=== PATIENT | male | born 1955 | race Two or more races ===

== ENCOUNTER 2017-05-23 03:19 | Emergency (ER) | payer SELFPAY ==
[~2017-05-23] VITALS: Ht 165.1 cm; Wt 77.1 kg
--- NOTE | 2017-05-23 03:49 | NUR ---
PT BIB SELF FROM HOME, AMBULATORY TO ER BED 9 WITH PERSONAL CRUTCHES. PT C/O LEFT FOOT PAIN X 1 DAY PT DENIES INJURY OR TRAUMA. PT AOX3 RR EVEN AND UNLABORED. NO SOB NOTED. NAD NOTED. NO NVD AT THIS TIME. PT DENIES CP. PT PLACED ON MONITOR WAITING FOR MD THOMAS.
--- NOTE | 2017-05-23 03:50 | NUR ---
RADIOLOGY AT BEDSIDE FOR XR
[2017-05-23] MEDS ORDERED: DEXAMETHASONE SOD PHOSPHATE 10 MG/ML VIAL ONE (03:52)
[2017-05-23] MEDS ORDERED: COLCHICINE 0.6 MG TABLET ONE (03:52)
[2017-05-23] MEDS ORDERED: COLCHICINE 0.6 MG TABLET PO ONE (04:00)
[2017-05-23] MEDS ORDERED: DEXAMETHASONE SOD PHOSPHATE 4 MG/ML VIAL IM ONE (04:00)
--- NOTE | 2017-05-23 04:40 | NUR ---
DR. ARIAS AT BEDSIDE SPEAKING TO PT REGARDING RESULTS.
[2017-05-23] MEDS ORDERED: CLONIDINE HCL 0.1 MG TABLET ONE (05:11)
[2017-05-23] MEDS ORDERED: CLONIDINE HCL 0.1 MG TABLET PO ONE (05:30)
--- NOTE | 2017-05-23 06:09 | NUR ---
Patient discharged to home in stable condition. Written and verbal after care instructions given. Patient verbalizes understanding of instruction. ambulatory with a steady gait.
[2017-05-23 06:10] VITALS: BP 163/98
== END 2017-05-23 06:11 | disposition home or self-care (01) ==
LOC: ER 03:21
DX: M10.9 Gout, unspecified (principal); I10 Essential (primary) hypertension
CPT/HCPCS: 73630-TC; A4606; J1100; Z7610

== ENCOUNTER 2018-06-23 22:43 | Inpatient (IN) | payer MEDICAID ==
[~2018-06-23] VITALS: Ht 165.1 cm; Wt 72.7 kg
--- NOTE | 2018-06-23 23:02 | NUR ---
Note meredith in EDM - 06/24/18 at 0127 by LUIGI PT TO ER BED 10. AMBULATORY WITH CRUTCHES. AAOX4. NAD. C/O R LOWER LEG SWELLING X 1 WEEK, WARM AND DRY TO TOUCH. AWATING MD THOMAS.
--- NOTE | 2018-06-23 23:02 | NUR ---
PT TO ER BED 10. AMBULATORY WITH CRUTCHES. AAOX4. NAD. C/O R LOWER LEG SWELLING X 2 DAYS, WARM AND DRY TO TOUCH. AWATING MD THOMAS.
--- NOTE | 2018-06-23 23:05 | NUR ---
UNABLE TO APPRECIATE PEDAL PULSE D/T EDEMA +3
--- NOTE | 2018-06-23 23:12 | NUR ---
MD AT BEDSIDE FOR EVAL. AWAITING ORDERS
--- NOTE | 2018-06-23 23:14 | NUR ---
FACILITY MAINTENANCE WORKER INSTRUCTIONAL PARAPROFESSIONAL WAS PAGED
--- NOTE | 2018-06-23 23:16 | NUR ---
IV ACCESS OBTAINED ON L AC 18G. LABS DRAWN AND GIVEN TO TECH AT BEDSIDE.
[2018-06-23] MEDS ORDERED: VANCOMYCIN 1 GM in IV D5W 250 ML IV ONE (23:30)
[2018-06-23] MEDS ORDERED: CLINDAMYCIN 600 MG in IV D5W 100 ML IV ONE (23:30)
--- NOTE | 2018-06-23 23:30 | NUR ---
EKG BEING DONE BY TECH
[2018-06-23] MEDS ORDERED: CLINDAMYCIN 900 MG/6 ML VIAL ONE (23:32)
[2018-06-23] MEDS ORDERED: VANCOMYCIN 1 GM VIAL ONE (23:32)
[2018-06-23 23:33] LABS: BASOPHILS # (AUTO) 0.1 /CMM (0.0-0.2); EOSINOPHILS % (AUTO) 2.2 % (0.0-6.0); HEMATOCRIT 23 % (39-51); LYMPHOCYTES # (AUTO) 0.9 /CMM (0.8-4.8); LYMPHOCYTES % (AUTO) 11.8 % (20.0-44.0); MEAN CORPUSCULAR HGB CONC 30 g/dl (31.0-36.0); MEAN CORPUSCULAR VOLUME 67 fL (80-96); MONOCYTES # (AUTO) 0.8 /CMM (0.1-1.30); MONOCYTES % (AUTO) 10.9 % (2.0-12.0); NEUTROPHILS # (AUTO) 5.7 /CMM (1.8-8.9); NEUTROPHILS % (AUTO) 74.1 % (43.0-81.0); WHITE BLOOD COUNT (AUTO) 7.8 K/uL (4.3-11.0)
[2018-06-23 23:36] LABS: CREATININE 1.1 mg/dL (0.6-1.3); POTASSIUM 3.9 mmol/L (3.5-5.1)
[2018-06-23 23:42] LABS: PLATELET COUNT (AUTO) 1069 /CMM (150-450)
--- NOTE | 2018-06-23 23:51 | NUR ---
US TECH AT BEDSIDE.
[2018-06-24] VITALS (7 sets, daily range): BP systolic 128–160; BP diastolic 60–88
[2018-06-24 00:28] LABS: LYMPHOCYTES % (MANUAL) 8 % (16-48); MONOCYTES % (MANUAL) 6 % (0-11.0)
[2018-06-24 00:29] LABS: NEUTROPHILS % (MANUAL) 86 (42-76)
[2018-06-24] MEDS ORDERED: PANTOPRAZOLE 40 MG VIAL IV ONE (00:30)
--- NOTE | 2018-06-24 00:42 | NUR ---
CALLED [employer]. LOCAL SUPERINTENDENT WAS PAGED.
[2018-06-24 01:20] LABS: D-DIMER 14.48 mg/L(FEU (0.17-0.50)
--- NOTE | 2018-06-24 01:20 | NUR ---
JOAO SHEIKH CALL THE NURSING RAW MATERIAL HANDLER FOR A MS BED Addendum: 06/24/18 at 0128 by CHELSEA NUZHAT SHEIKH IS CALLING THE NURSING RAW MATERIAL HANDLER FOR A MS BED
[2018-06-24] MEDS ORDERED: MAGNESIUM HYDROXIDE 30 ML UDC PO PRN (01:30)
[2018-06-24] MEDS ORDERED: MORPHINE SULFATE INJ 2 MG/ML DISP.SYRIN IV PRN (01:30)
[2018-06-24] MEDS ORDERED: Z GUARD REMEDY 2 OZ OINT TP PRN (01:30)
[2018-06-24] MEDS ORDERED: ONDANSETRON HCL/PF 4 MG/2 ML VIAL IVP PRN (01:30)
[2018-06-24] MEDS ORDERED: ZOLPIDEM TARTRATE 5 MG TABLET PO PRN (01:30)
[2018-06-24] MEDS ORDERED: HYDROCODONE/APAP 5/325MG 1 EACH TABLET PO PRN (01:30)
--- NOTE | 2018-06-24 01:40 | NUR ---
REPORT GIVEN TO JOAO SEQUEIRA FOR WENDY, PT WILL BE TRANSPORTED VIA ACLS PROTOCOL TO 320-1
[2018-06-24] MEDS: IV NS 0.9% 1,000 ML IV PRN (01:58)
[2018-06-24 02:15] LABS: IRON, SERUM 8 ug/dl (50-175); TOTAL IRON BINDING CAPACITY 271 ug/dl (250-450)
--- NOTE | 2018-06-24 02:15 | NUR ---
MS/RN RECEIVE PATIENT FROM E.. VIA [facility], PATIENT IS AWAKE, ALERT, ORIENTED, COMFORTABLE, NO C/O PAIN AT THIS TIME, NO DISTRESS NOTE, ADMISSION DONE PER PROTOCOL, PER PATIENT HE HAS NO SKIN PROBLEM EXCEPT FOR THE SWELLING IN HIS RT. LEG, TAUGHT THE USE OF CALL LIGHT, VERBALIZED UNDERSTANDING, AND PLACED IT AT BEDSIDE WITHIN REACH. PLAN OF CARE DISCUSSED, VERBALIZED UNDERSTANDING AND AGREEMENT, WILL MONITOR.
--- NOTE | 2018-06-24 04:01 | NUR ---
MS/RN PATIENT IS SLEEPING AT THIS TIME, AROUSABLE, APPEAR COMFORTABLE, NO SIGNS OF DISTRESS NOTED, CALL LIGHT IN REACH. WILL CONTINUE TO MONITOR.
--- NOTE | 2018-06-24 06:10 | NUR ---
MS/RN PATIENT IS STILL SLEEPING AT THIS TIME, AROUSABLE, APPEAR COMFORTABLE, NO SIGNS OF DISTRESS NOTED, CALL LIGHT IN REACH. ALL NEEDS ATTENDED AT THIS TIME, WILL CONTINUE TO MONITOR.
--- NOTE | 2018-06-24 06:31 | NUR ---
MS/RN PATIENT IS AWAKE, ALERT, COMFORTABLE, NO C/O PAIN, NO DISTRESS NOTED. CALL LIGHT IN REACH. WILL CONTINUE TO MONITOR.
--- NOTE | 2018-06-24 07:30 | NUR ---
MS RN RECEIVED ON BED, AWAKE,ALERT,ORIENTED X4,NOT IN ANY FORM OF DISTRESS, RESPIRATIONS EVEN AND UNLABORED,NO SOB NOTED, LUNGS ARE CLEAR.ABDOMEN SOFT,POSITIVE BOWEL SOUNDS,DENIES PAIN AT THIS TIME,WILL MONITOR PATIENT'S CONDITION.
--- NOTE | 2018-06-24 07:45 | NUR ---
MS RN RECEIVED ON BED, AWAKE,ALERT,ORIENTED X4,NOT IN ANY FORM OF DISTRESS, RESPIRATIONS EVEN AND UNLABORED,NO SOB NOTED. DENIES PAIN AT THIS TIME, WILL MONITOR PATIENT.
--- NOTE | 2018-06-24 08:08 | NUR ---
MS RN RECEIVE D A CRITICAL LEVEL FOR HGB AND PLATELETS, DOCTOR ANAIS SANCHEZ.
[2018-06-24] MEDS ORDERED: FEE PK DOSING 1 MIN EA MC ONE (08:10)
--- NOTE | 2018-06-24 08:10 | NUR ---
MS RN JUST ATE BREAKFAST, PATIENT WANTS TO GO AMA, EXPLAINED RISK AND BENEFITS, STILL WANT TO GO.
[2018-06-24 08:15] LABS: CALCIUM, SERUM 8.4 mg/dL (8.5-10.1); MAGNESIUM 2.3 mg/dL (1.8-2.4); PHOSPHORUS 4.1 mg/dL (2.5-4.9); POTASSIUM 3.7 mmol/L (3.5-5.1)
--- NOTE | 2018-06-24 08:15 | NUR ---
MS RN PATIENT WENT AMA, PAPER SIGNED,CN NOTIFIED, REMOVED IV KISHAN. Addendum: 06/24/18 at 0837 by MOLLY MONGE RN DISREGARD NOTES AT [id number] AND 0815.
[2018-06-24 08:37] LABS: BASOPHILS # (AUTO) 0.1 /CMM (0.0-0.2); BASOPHILS % (AUTO) 1.3 % (0.0-2.0); EOSINOPHILS % (AUTO) 4.8 % (0.0-6.0); HEMATOCRIT 21 % (39-51); LYMPHOCYTES # (AUTO) 1.3 /CMM (0.8-4.8); LYMPHOCYTES % (AUTO) 18.3 % (20.0-44.0); MEAN CORPUSCULAR HGB CONC 31 g/dl (31.0-36.0); MEAN CORPUSCULAR VOLUME 66 fL (80-96); MONOCYTES # (AUTO) 0.8 /CMM (0.1-1.30); MONOCYTES % (AUTO) 11.4 % (2.0-12.0); NEUTROPHILS # (AUTO) 4.4 /CMM (1.8-8.9); NEUTROPHILS % (AUTO) 64.2 % (43.0-81.0); RED BLOOD CELL COUNT(AUTO) 3.22 MIL/uL (4.5-6.0); WHITE BLOOD COUNT (AUTO) 6.9 K/uL (4.3-11.0)
[2018-06-24 08:39] LABS: HEMOGLOBIN 6.6 g/dL (13.5-17.5); PLATELET COUNT (AUTO) 973 /CMM (150-450)
[2018-06-24] MEDS: ENOXAPARIN SODIUM 40 MG/0.4 ML DISP.SYRIN SQ SCH (09:00)
--- NOTE | 2018-06-24 09:00 | NUR ---
MS JOAO HILLIARD HELD PER DOCTOR MANZO W/ ON UNIT PRBC TO BE GIVEN FOR LOW HGB.
--- NOTE | 2018-06-24 13:00 | NUR ---
MS RN NEW IV SITE INSERTED AT LEFT HAND FOR ANOTHER ATB IV TO USE, G22 W/ GOOD VENOUS OUTPUT.
[2018-06-24] MEDS ORDERED: IBUP-1957 PO (13:33)
[2018-06-24] MEDS: PIPERACILLIN /TAZOBACTAM 3.375 G in IV D5W 50 ML IV SCH ×2 (14:09→17:54)
[2018-06-24] MEDS: VANCOMYCIN 1 GM in IV D5W 250 ML IV SCH (14:09)
[2018-06-24 14:21] LABS: LYMPHOCYTES % (MANUAL) 21 % (16-48); MONOCYTES % (MANUAL) 6 % (0-11.0); NEUTROPHILS % (MANUAL) 73 (42-76)
[2018-06-24] MEDS ORDERED: diphenhydrAMINE HCL 25 MG CAPSULE PO PRN (14:30)
--- NOTE | 2018-06-24 14:33 | NUR ---
MS RN PATIENT REQUESTED TO REMOVED IV SITE AT LEFT AC, CAUSING HIM PAIN.
[2018-06-24] MEDS: SOD FERRIC GLUC 125 MG in IV NS 0.9% 100 ML IV SCH (15:10)
[2018-06-24] MEDS: MORPHINE SULFATE INJ 2 MG/ML DISP.SYRIN IV PRN ×2 (15:11→22:06)
--- NOTE | 2018-06-24 17:40 | NUR ---
MS RN ON BED,NO DISTRESS NOTED.
--- NOTE | 2018-06-24 19:12 | NUR ---
MS RN STARTED BT, NO REACTION NOTED, ENDORSED TO HIGH SCHOOL FOREIGN LANGUAGE TEACHER RN FOR MONITORING.
--- NOTE | 2018-06-24 19:30 | NUR ---
MS/RN RECEIVE PATIENT AWAKE, ALERT, ORIENTED, COMFORTABLE, NO C/O PAIN, NO DISTRESS NOTE, BLOOD TRANSFUSION IN PROGRESS, WILL MONITOR PER BLOOD TRANSFUSION PROTOCOL.
[2018-06-24] MEDS: ACETAMINOPHEN 325 MG TABLET PO PRN (20:31)
--- NOTE | 2018-06-24 21:29 | NUR ---
MS/RN TEMP 100.8, BP128/66, HR 95, RR 18, O2 SAT 98% ON ROOM AIR, NO RASHES, NO HIVES NOTED, PATIENT NO C/O ANY PAIN, NO SOB, NOTIFIED CHARGE NURSE, CALLED [facility], SPOKE TO SESAR PALACIO NP, AT 2019 WITH ORDER TO STOP THE BLOOD TRANSFUSION, GIVE TYLENOL AND CHECK CBC IN A.M. TYLENOL 650 MG PO WAS GIVEN TO THE PATIENT ORDERED, CALLED BLOOD BANK, SPOKE TO RITIKA, NOTIFIED ABOUT THE TEMP OF 100.8 DURING BLOOD TRANSFUSION, PER RITIKA HE DOES NOT THINK IT IS A BLOOD TRANSFUSION REACTION, AND THAT, JUST MONITOR THE PATIENT FOR ANY OTHER REACTION. CHARGE NURSE MADE AWARE OF ALL THE WITH JUNIOR COPYWRITER AND BLOOD BANK, WILL CONTINUE TO MONITOR THE PATIENT.
--- NOTE | 2018-06-24 23:56 | NUR ---
MS/RN PATIENT IS SLEEPING AT THIS TIME, APPEAR COMFORTABLE, NO SIGNS OF DISTRESS NOTED, BREATHING EVEN AND UNLABORED, CALL LIGHTIN WITHIN REACH. WILL CONTINUE TO MONITOR.
[2018-06-25] VITALS (8 sets, daily range): BP systolic 116–139; BP diastolic 63–79
[2018-06-25] MEDS: PIPERACILLIN /TAZOBACTAM 3.375 G in IV D5W 50 ML IV SCH ×4 (01:13→18:27)
[2018-06-25] MEDS: VANCOMYCIN 1 GM in IV D5W 250 ML IV SCH ×2 (01:52→14:13)
[2018-06-25] MEDS: MORPHINE SULFATE INJ 2 MG/ML DISP.SYRIN IV PRN ×3 (04:43→19:59)
[2018-06-25 05:46] LABS: OCCULT BLOOD STOOL NEGATIVE (NEGATIVE)
--- NOTE | 2018-06-25 06:14 | NUR ---
MS/RN PATIENT IS SLEEPING AT THIS TIME, APPEAR COMFORTABLE, NO SIGNS OF DISTRESS NOTED, CALL LIGHT IN REACH. ALL NEEDS ATTENDED AT THIS TIME, WILL CONTINUE TO MONITOR.
[2018-06-25 06:57] LABS: CALCIUM, SERUM 7.9 mg/dL (8.5-10.1); CREATININE 1.1 mg/dL (0.6-1.3); POTASSIUM 3.5 mmol/L (3.5-5.1)
[2018-06-25] MEDS: HYDROCODONE/APAP 5/325MG 1 EACH TABLET PO PRN (07:02)
--- NOTE | 2018-06-25 07:30 | NUR ---
MS RN RECEIVED ON BED, AWAKE,ALERT, ORIENTED X4,NOT IN ANY FORM OF DISTRESS, RESPIRATIONS EVEN AND UNLABORED,NO SOB NOTED. WILL MONITOR PATIENT.
[2018-06-25 08:18] LABS: BASOPHILS # (AUTO) 0.1 /CMM (0.0-0.2); BASOPHILS % (AUTO) 1.1 % (0.0-2.0); EOSINOPHILS % (AUTO) 3.6 % (0.0-6.0); HEMATOCRIT 21 % (39-51); LYMPHOCYTES # (AUTO) 0.9 /CMM (0.8-4.8); LYMPHOCYTES % (AUTO) 11.7 % (20.0-44.0); MEAN CORPUSCULAR HGB CONC 31 g/dl (31.0-36.0); MEAN CORPUSCULAR VOLUME 68 fL (80-96); MONOCYTES # (AUTO) 0.8 /CMM (0.1-1.30); MONOCYTES % (AUTO) 9.6 % (2.0-12.0); RED BLOOD CELL COUNT(AUTO) 3.11 MIL/uL (4.5-6.0); WHITE BLOOD COUNT (AUTO) 8.1 K/uL (4.3-11.0)
[2018-06-25 08:21] LABS: HEMOGLOBIN 6.5 g/dL (13.5-17.5); PLATELET COUNT (AUTO) 964 /CMM (150-450)
[2018-06-25 08:56] LABS: LYMPHOCYTES % (MANUAL) 12 % (16-48); MONOCYTES % (MANUAL) 6 % (0-11.0); NEUTROPHILS % (MANUAL) 82 (42-76)
[2018-06-25] MEDS: ENOXAPARIN SODIUM 40 MG/0.4 ML DISP.SYRIN SQ SCH (08:56)
[2018-06-25] MEDS ORDERED: FUROSEMIDE 20 MG/2 ML VIAL IV ONE (09:00)
[2018-06-25] MEDS: POTASSIUM CHLORIDE 20 MEQ TAB.PRT.SR PO SCH ×3 (09:18→11:20)
--- NOTE | 2018-06-25 09:30 | NUR ---
Marilee RN BREAKFAST SERVED, LOVENOX HELD PER DR. GUERRERO. LOW HGB AT 6.5, WILL HAVE A BLOOD TRANSFUSION TODAY.
[2018-06-25] MEDS: ACETAMINOPHEN 325 MG TABLET PO PRN ×4 (10:17→19:58)
--- NOTE | 2018-06-25 11:40 | NUR ---
MS RN STARTED BLOOD TRANSFUSION, NO REACTION NOTED, NO FEVER AT THIS TIME.
--- NOTE | 2018-06-25 14:18 | NUR ---
MS RN FINISHED BLOOD TRANSFUSION W/O ANY ADVERSE REACTION,V/S WNL, NO FEVER NOTED.TOLERATED WELL.
[2018-06-25] MEDS: SOD FERRIC GLUC 125 MG in IV NS 0.9% 100 ML IV SCH (15:25)
--- NOTE | 2018-06-25 16:58 | NUR ---
MS RN ON BED,NO DISTRESS NOTED.
[2018-06-25] MEDS: LACTOBACILLUS RHAMNOSUS GG 1 EACH CAP.SPRINK PO SCH (17:33)
[2018-06-25] MEDS ORDERED: PANTOPRAZOLE 40 MG VIAL IV SCH (18:30)
--- NOTE | 2018-06-25 19:00 | NUR ---
RN MS NOTES RECEIVED PATIENT IN BED AWAKE ALERT AND ORIENTED X4, RESPIRATIONS EVEN AND UNLABORED WITH EQUAL RISE AND FALL OF CHEST, NOTED WITH RLE SWELLING, AMBULATORY WITH CRUTCHES, IV SITE TO RIGHT UPPER ARM #24. REFUSED IVF AT THIS TIME, ORIENTED TO STAFF AND CALL LIGHT AND KEPT WITHIN REACH, SAFETY PRECAUTIONS IN PLACE, CRUTCHES WITHIN REACH. FLUIDS OFFERED, PATIENT MADE AWARE OF NPO STATUS AT MIDNIGHT. ALL NEEDS ATTENDED WILL CONTINUE TO MONITOR.
--- NOTE | 2018-06-25 19:59 | NUR ---
RN MS NOTES NOTED PATIENT WITH AGITATION AND RESTLESSNESS, COMPLAINING OF PAIN TO RIGHT LOWER EXTREMITY 10/10 OFFERED PAIN MEDICATION REQUESTED FOR MORPHINE. VS WNL 132/72,18,104,97% MORPHINE PRN GIVEN. PATIENT REFUSING IVF.WILL CONTINUE TO MONITOR FOR EFFECTIVENESS. PATIENT ALSO NOTED WITH ELEVATED TEMP OF 100.1 TYLENOL OFFERED AND TAKEN COOLING MEASURES OFFERED AND PROVIDED, NO CHILLS OR SWEATS PRESENT. WILL CONTINUE TO MONITOR
--- NOTE | 2018-06-25 20:56 | NUR ---
RN MS NOTES CHANGE OF ASSIGNMENT , REPORT GIVEN TO JOAO MEI FOR CONTINUITY OF CARE, PATIENT REMAINS COMFORTABLE AND SAFE AT THIS TIME.
--- NOTE | 2018-06-25 21:00 | NUR ---
RN NOTES RECEIVED PT,. FROM ANOTHER PT. PT. IS AWAKE, A/OX4, DENIES PAIN, NO SOB, CALL LIGHT WITHIN REACH, CONTINUE TO MONITOR
--- NOTE | 2018-06-25 21:30 | NUR ---
RN NOTES ICU NURSE CAME AND INSERTED A NEW LINE ON THE RIGHT FOREARM
[2018-06-26] MEDS: PIPERACILLIN /TAZOBACTAM 3.375 G in IV D5W 50 ML IV SCH ×4 (00:33→19:04)
[2018-06-26] MEDS: VANCOMYCIN 1 GM in IV D5W 250 ML IV SCH (01:33)
[2018-06-26] MEDS: MORPHINE SULFATE INJ 2 MG/ML DISP.SYRIN IV PRN ×2 (01:56→07:04)
--- NOTE | 2018-06-26 02:00 | NUR ---
RN NOTES COMPLAINED OF ABDOMINAL PAIN- MORPHINE 2 MG IV GIVEN ORDERED, V/S STABLE
[2018-06-26 06:51] VITALS: BP 151/85
--- NOTE | 2018-06-26 06:53 | NUR ---
RN NOTES AWAKE, DENIES PAIN, NO SOB, MORNING CARE RENDERED, PT. NEEDS ATTENDED
--- NOTE | 2018-06-26 07:07 | NUR ---
RN NOTES COMPLAINED OF RIGHT LOWER EXTREMITY PAIN- MORPHINE 2 MG IV GIVEN ORDERED, V/S STABLE
[2018-06-26 07:31] LABS: BASOPHILS # (AUTO) 0.1 /CMM (0.0-0.2); BASOPHILS % (AUTO) 1.2 % (0.0-2.0); EOSINOPHILS % (AUTO) 3.5 % (0.0-6.0); HEMATOCRIT 27 % (39-51); HEMOGLOBIN 8.4 g/dL (13.5-17.5); LYMPHOCYTES # (AUTO) 1.4 /CMM (0.8-4.8); LYMPHOCYTES % (AUTO) 14.5 % (20.0-44.0); MEAN CORPUSCULAR HGB CONC 31 g/dl (31.0-36.0); MEAN CORPUSCULAR VOLUME 69 fL (80-96); MONOCYTES # (AUTO) 0.9 /CMM (0.1-1.30); MONOCYTES % (AUTO) 9.4 % (2.0-12.0); NEUTROPHILS # (AUTO) 6.8 /CMM (1.8-8.9); NEUTROPHILS % (AUTO) 71.4 % (43.0-81.0); RED BLOOD CELL COUNT(AUTO) 3.92 MIL/uL (4.5-6.0); WHITE BLOOD COUNT (AUTO) 9.5 K/uL (4.3-11.0)
[2018-06-26 07:38] LABS: PLATELET COUNT (AUTO) 1148 /CMM (150-450)
[2018-06-26 07:44] LABS: ALANINE AMINOTRANSFERASE 17 U/L (12-78); ALKALINE PHOSPHATASE 149 U/L (46-116); ASPARTATE AMINOTRANSFERASE 18 U/L (15-37); BILIRUBIN,TOTAL 0.4 mg/dL (0.2-1.0); CALCIUM, SERUM 8.7 mg/dL (8.5-10.1); CARBON DIOXIDE 28 mmol/L (21-32); CHLORIDE 101 mmol/L (98-107); CREATININE 1.1 mg/dL (0.6-1.3); GLUCOSE 103 mg/dL (74-106); MAGNESIUM 2.3 mg/dL (1.8-2.4); PHOSPHORUS 3.8 mg/dL (2.5-4.9); POTASSIUM 4.2 mmol/L (3.5-5.1); SODIUM SERUM 137 mmol/L (136-145); UREA NITROGEN, BLOOD 14 mg/dL (7-18)
--- NOTE | 2018-06-26 07:57 | NUR ---
M/S RN NOTES PATIENT AWAKE, ALERT AND ORIENTED X4, NO ACUTE DISTRESS NOTED, NO SOB. IV ON LFA #20G, INTACT AND PATENT. PATIENT REFUSED IVF AT THIS TIME. PATIENT ON NPO STATUS. BED ON LOW AND LOCKED POSITION. CALL LIGHT WITHIN REACH. WILL CONTINUE TO MONITOR.
[2018-06-26 08:00] VITALS: BP 133/75
[2018-06-26] MEDS ORDERED: ANESTHESIA TRAY IN PYXIS 1 EA TRAY MC ONE (08:24)
[2018-06-26 08:26] LABS: EOSINOPHILS % (MANUAL) 3 % (0-4); LYMPHOCYTES % (MANUAL) 12 % (16-48); MONOCYTES % (MANUAL) 14 % (0-11.0); NEUTROPHILS % (MANUAL) 71 (42-76)
--- NOTE | 2018-06-26 09:00 | NUR ---
ms moo came back from egd w/ orders made and carried out.
[2018-06-26] MEDS: LACTOBACILLUS RHAMNOSUS GG 1 EACH CAP.SPRINK PO SCH ×2 (09:19→17:38)
[2018-06-26] MEDS: ENOXAPARIN SODIUM 40 MG/0.4 ML DISP.SYRIN SQ SCH (09:23)
--- NOTE | 2018-06-26 11:00 | NUR ---
ms rn was seen by dr. alena david/ orders made and carried out.
[2018-06-26] MEDS: SUCRALFATE 1 G/10 ML UDC PO SCH ×2 (12:09→17:39)
[2018-06-26] MEDS ORDERED: IBUPROFEN 400 MG TABLET ONE (13:33)
[2018-06-26] MEDS: VANCOMYCIN 0.75 GM in IV D5W 250 ML IV SCH (13:42)
[2018-06-26] MEDS: SOD FERRIC GLUC 125 MG in IV NS 0.9% 100 ML IV SCH (14:46)
[2018-06-26] MEDS: IV NS 0.9% 1,000 ML IV PRN (15:24)
[2018-06-26] MEDS: HYDROCODONE/APAP 5/325MG 1 EACH TABLET PO PRN (15:48)
[2018-06-26 16:00] VITALS: BP 132/69
[2018-06-26] MEDS: PANTOPRAZOLE 40 MG VIAL IV SCH (17:38)
--- NOTE | 2018-06-26 19:21 | NUR ---
ms rn on bed, no distress noted, endorsed to senior analysis specialist for continuity of care.
--- NOTE | 2018-06-26 19:30 | NUR ---
RN NOTES RECEIVED PT. AWAKE ON BED, A/OX4, AMBULATE WITH CRUTCHES, DENIES PAIN, NO SOB, CALL LIGHT WITHIN REACH, SIDERAILSUPX2, WILL CONTINUE TO MONITOR
[2018-06-26 20:00] VITALS: BP_SYST 156; BP_SYST 163; BP_DIAS 79
[2018-06-27] MEDS: SUCRALFATE 1 G/10 ML UDC PO SCH ×3 (00:32→12:15)
[2018-06-27] MEDS: PIPERACILLIN /TAZOBACTAM 3.375 G in IV D5W 50 ML IV SCH ×3 (00:33→13:14)
[2018-06-27] MEDS: HYDROCODONE/APAP 5/325MG 1 EACH TABLET PO PRN (00:45)
--- NOTE | 2018-06-27 00:45 | NUR ---
RN NOTES COMPLAINED OF RIGHT LEG PAIN- NORCO 5/325MG PO GIVEN ORDERED, V/S STABLE
[2018-06-27] MEDS: VANCOMYCIN 0.75 GM in IV D5W 250 ML IV SCH (01:24)
--- NOTE | 2018-06-27 06:45 | NUR ---
RN NOTES AWAKE, DENIES PAIN, NO SOB, MORNING CARE RENDERED, CALL [facility] WITHIN REACH, SIDERAILSUPX2, PT. NEEDS ATTENDED
[2018-06-27 07:28] LABS: BASOPHILS # (AUTO) 0.1 /CMM (0.0-0.2); BASOPHILS % (AUTO) 1.2 % (0.0-2.0); EOSINOPHILS % (AUTO) 3.4 % (0.0-6.0); HEMATOCRIT 25 % (39-51); HEMOGLOBIN 7.7 g/dL (13.5-17.5); LYMPHOCYTES # (AUTO) 1.4 /CMM (0.8-4.8); LYMPHOCYTES % (AUTO) 17.8 % (20.0-44.0); MEAN CORPUSCULAR HGB CONC 31 g/dl (31.0-36.0); MEAN CORPUSCULAR VOLUME 69 fL (80-96); MONOCYTES # (AUTO) 0.9 /CMM (0.1-1.30); MONOCYTES % (AUTO) 10.8 % (2.0-12.0); NEUTROPHILS # (AUTO) 5.4 /CMM (1.8-8.9); NEUTROPHILS % (AUTO) 66.8 % (43.0-81.0); RED BLOOD CELL COUNT(AUTO) 3.61 MIL/uL (4.5-6.0); WHITE BLOOD COUNT (AUTO) 8.1 K/uL (4.3-11.0)
[2018-06-27 07:36] LABS: PLATELET COUNT (AUTO) 1044 /CMM (150-450)
[2018-06-27 07:43] LABS: CALCIUM, SERUM 8.4 mg/dL (8.5-10.1); CREATININE 1.1 mg/dL (0.6-1.3); MAGNESIUM 2.5 mg/dL (1.8-2.4); POTASSIUM 4.1 mmol/L (3.5-5.1)
[2018-06-27 08:10] VITALS: BP 138/90
[2018-06-27 08:44] LABS: LYMPHOCYTES % (MANUAL) 7 % (16-48); MONOCYTES % (MANUAL) 6 % (0-11.0); NEUTROPHILS % (MANUAL) 87 (42-76)
--- NOTE | 2018-06-27 09:08 | NUR ---
RN MS NOTES OPENING Patient received on room air, no sob noted. Patient able to go to the restroom using his crutches, IVF at 75 ml/hr, flowing freely with no obstruction. Patient denies pain. Dr. Sapp ordered the enoxaparin to be d/c'd.
[2018-06-27] MEDS: LACTOBACILLUS RHAMNOSUS GG 1 EACH CAP.SPRINK PO SCH (09:11)
[2018-06-27] MEDS: PANTOPRAZOLE 40 MG VIAL IV SCH (09:11)
[2018-06-27] MEDS ORDERED: HYDR-4384 PO (09:56)
[2018-06-27] MEDS ORDERED: CLIN300C11 PO (09:56)
[2018-06-27] MEDS ORDERED: PANT40TA2 PO (09:56)
[2018-06-27] MEDS ORDERED: SUCR1ORA6 PO (09:56)
[2018-06-27] MEDS ORDERED: FERR325T23 PO (09:56)
[2018-06-27] MEDS ORDERED: NA PHOS,M-B/NA PHOS,DI-BA 1 EA ENEMA RC PRN (13:00)
[2018-06-27] MEDS ORDERED: MAGNESIUM CITRATE 296 ML BOTTLE PO ONE (13:00)
[2018-06-27] MEDS ORDERED: PEG 3350/NA SULF,BICARB,CL/KCL 4,000 ML BOTTLE PO ONE (13:00)
[2018-06-27] MEDS: SOD FERRIC GLUC 125 MG in IV NS 0.9% 100 ML IV SCH (14:18)
--- NOTE | 2018-06-27 16:02 | NUR ---
RN MS D/C NOTES Patient is discharged around 1530. Patient on room air, no sob noted. Patient denies pain at this time. Patient's vital sign stable. Patient has all his belongings with him, clothes, money and cell phone and cell phone food service driver. Patient was given the d/c paperworks, signed and has no questions or questions about his discharge instructions. Patient was taken home by a private car driven by his friend. Photo's were taken of his Right Lower Leg.
== END 2018-06-27 15:35 | disposition home or self-care (01) | DRG 383 ==
LOC: ER 22:49 → MED 06-24 01:24
PROVIDERS: ADMIT Nurse Practitioner Acute Care; ATTEND Nurse Practitioner Acute Care
DX: L03.115 Cellulitis of right lower limb (principal); D69.6 Thrombocytopenia, unspecified; K20.9 Esophagitis, unspecified; D50.9 Iron deficiency anemia, unspecified; E11.9 Type 2 diabetes mellitus without complications; F14.11 Cocaine abuse, in remission; K27.3 Acute peptic ulcer, site unspecified, without hemorrhage or perforation; M10.9 Gout, unspecified; Z87.891 Personal history of nicotine dependence; K29.80 Duodenitis without bleeding; K29.70 Gastritis, unspecified, without bleeding; K44.9 Diaphragmatic hernia without obstruction or gangrene; Z82.49 Family history of ischemic heart disease and other diseases of the circulatory system; Z96.641 Presence of right artificial hip joint; Z87.11 Personal history of peptic ulcer disease; Z83.3 Family history of diabetes mellitus; M71.20 Synovial cyst of popliteal space [Baker], unspecified knee
CPT/HCPCS: 36415; 71045-TC; 73564-TC; 73590-TC; 80048-TC; 80053-TC; 80061-TC; 80202-TC; 82272-TC; 82378; 83540-TC; 83735-TC; 83880; 84100-TC; 84484-TC; 85025-TC; 85378-TC; 85652-TC; 85730-TC; 86140-TC; 86850-TC; 86900-TC; 86921-TC; 87040-TC; 87081-TC; 88305-TC; 88313-TC; 93307-TC; 93971-TC; C9113; G0378; J1650; J1940; J2270; J2543; J2916; J3370; J3490; J7030; J7050; J7060; P9016-BL

== ENCOUNTER 2021-11-03 09:43 | Inpatient (IN) | payer MEDICAID ==
[~2021-11-03] VITALS: Ht 160 cm; Wt 68.0 kg
[~2021-11-03 09:43] MED LIST: CLIN300C12 PO; FERR325T23 PO; HYDR-4384 PO; IBUP-1957 PO; PANT40TA2 PO; SUCR1ORA6 PO
--- NOTE | 2021-11-03 09:48 | NUR ---
[id number] FROM "HOME" FOR ALTERED MENTAL STATUS, NONVERBAL, PER EMS LKW 9PM. ATTACHED TO MONITOR, DR VELOZ AT BEDSIDE. BLOOD GLUCOSE 105 UPON ARRIVAL.AWIAITING ORDERS.
--- NOTE | 2021-11-03 09:56 | NUR ---
CODE STROKE. TELEMED ACTIVATED.
--- NOTE | 2021-11-03 09:58 | NUR ---
PT TAKEN TO CT.
[2021-11-03] MEDS ORDERED: ASPIRIN 300 MG/SUPP.RECT RC ONE ×2 (10:00→10:30)
[2021-11-03] MEDS ORDERED: IOHEXOL-350 100 ML VIAL IV ONE (10:00)
[2021-11-03] MEDS ORDERED: IV NS 0.9% 1,000 ML BAG IV ONE ×2 (10:00→11:00)
[2021-11-03] MEDS ORDERED: CT SWABBABLE VALVE TRANS SET 1 EA INFUS.SET MC ONE (10:00)
[2021-11-03] MEDS ORDERED: IV NS 0.9% 250 ML IV ONE (10:00)
--- NOTE | 2021-11-03 10:24 | NUR ---
COVID SWAB DONE AND SENT TO LAB
[2021-11-03 10:28] LABS: BASOPHILS % (AUTO) 0.3 % (0.0-2.0); HEMATOCRIT 44 % (39-51); HEMOGLOBIN 13.7 g/dL (13.5-17.5); LYMPHOCYTES # (AUTO) 0.8 K/uL (0.8-4.8); LYMPHOCYTES % (AUTO) 6.4 % (20.0-44.0); MEAN CORPUSCULAR HGB CONC 32 g/dl (31.0-36.0); MEAN CORPUSCULAR VOLUME 83 fL (80-96); MONOCYTES # (AUTO) 1.3 K/uL (0.1-1.30); MONOCYTES % (AUTO) 10.5 % (2.0-12.0); NEUTROPHILS # (AUTO) 9.9 K/uL (1.8-8.9); NEUTROPHILS % (AUTO) 82.8 % (43.0-81.0); PLATELET COUNT (AUTO) 184 K/uL (150-450); RED BLOOD CELL COUNT(AUTO) 5.25 MIL/uL (4.5-6.0)
--- NOTE | 2021-11-03 10:31 | NUR ---
X RAY AT BEDSIDE
[2021-11-03 10:43] LABS: ALANINE AMINOTRANSFERASE 19 U/L (12-78); ALBUMIN 3.1 g/dL (3.4-5.0); ALKALINE PHOSPHATASE 79 U/L (46-116); ASPARTATE AMINOTRANSFERASE 19 U/L (15-37); BILIRUBIN,DIRECT 0.2 mg/dL (0.0-0.2); BILIRUBIN,TOTAL 0.8 mg/dL (0.2-1.0); CALCIUM, SERUM 8.3 mg/dL (8.5-10.1); CARBON DIOXIDE 23 mmol/L (21-32); CHLORIDE 99 mmol/L (98-107); CREATININE 2.6 mg/dL (0.6-1.3); GLUCOSE 111 mg/dL (74-106); POTASSIUM 4.4 mmol/L (3.5-5.1); SODIUM SERUM 136 mmol/L (136-145); TOTAL PROTEIN, SERUM 6.7 g/dL (6.4-8.2); UREA NITROGEN, BLOOD 43 mg/dL (7-18)
--- NOTE | 2021-11-03 10:48 | NUR ---
URINE COLLECTED AND SENT
--- NOTE | 2021-11-03 10:50 | NUR ---
TROPONIN 102 LACTIC ACID 5.4 MD MAGDIEL SANCHEZ
[2021-11-03 10:54] LABS: CHOLESTEROL 112 mg/dL (<200); HDL CHOLESTEROL 28 mg/dL (40-60); LDL 72 mg/dL (0-99); TRIGLYCERIDES 94 mg/dL (30-150)
--- NOTE | 2021-11-03 10:57 | NUR ---
PER RADIOLOGY DR BROWNE, NO ACUTE HEMORRHAGE AND NO OCCLUSION Addendum: 11/03/21 at [address] MAGDIEL SANCHEZ
[2021-11-03] MEDS ORDERED: CEFEPIME 1 GM in IV D5W 50 ML IV ONE (11:00)
[2021-11-03] MEDS ORDERED: VANCOMYCIN 1 GM in IV D5W 250 ML IV ONE (11:00)
--- NOTE | 2021-11-03 11:04 | NUR ---
MOVE SHEET SUBMITTED.
[2021-11-03] MEDS ORDERED: PIPERACILLIN /TAZOBACTAM 3.375 G in IV D5W 50 ML IV SCH (12:00)
[2021-11-03] MEDS: BLOOD SUGAR DIAGNOSTIC 1 EACH STRIP IN SCH ×3 (12:00→22:19)
--- NOTE | 2021-11-03 12:11 | NUR ---
SS consult requested for family contacts. Pt. is a 66-year-old male who was admitted to the ED on 11/03/2021 due to AMS. senior planner called pt.' primary contact Omari Reynolds ([phone]) and left a voicemail. Per RN notes pt. has a niece [phone]. senior planner will remain available as needed.
--- NOTE | 2021-11-03 13:15 | NUR ---
BED 118-1
--- NOTE | 2021-11-03 13:30 | NUR ---
REPOTR GIVEN TO MÓNICA FOR WENDY
--- NOTE | 2021-11-03 13:57 | NUR ---
[facility] WITH ACLS PROTOCOLS IN PLACE
--- NOTE | 2021-11-03 14:10 | NUR ---
COBBLER UPPER NOTE ADMIT 66 YEARS OLD MALE TO ROOM 118 TELE MONITORING VERBALLY NOT RESPONSIVE,RESPONSIVE ON DEEP PAIN STIMULI,NON VERBAL,ADMITTING DIAGNOSES IS ACUTE CVA VS TIA, IV SITE IS ON LEFT AC #18 INTACT PATENT,SAFETY MEASURE IMPLEMENT BED IN LOW POSITION AND LOCKED HEAD OF THE BED ELEVATED,PUT ON 2L OXYGEN VIA NASAL CANNULA FOR COMFORT O2:99% CONTINUE TO MONITOR.
[2021-11-03] MEDS: IV NS 0.9% 1,000 ML IV PRN (14:40)
[2021-11-03 14:53] VITALS: BP 176/90
[2021-11-03 16:00] VITALS: BP 155/68
[2021-11-03 16:15] LABS: BILIRUBIN,URINE NEGATIVE (NEGATIVE); COLOR,URINE YELLOW (YELLOW); LEUKOCYTE ESTERASE ,URINE NEGATIVE (NEGATIVE); NITRITE, URINE NEGATIVE (NEGATIVE); PROTEIN,URINE 30 mg/dl (NEGATIVE); UGLUCOSE NEGATIVE (NEGATIVE); UROBILINOGEN,URINE 0.2 EU/dL (0.2)
[2021-11-03 17:25] LABS: BACTERIA,URINE None seen /HPF (None Seen); WBC,URINE 0-2 /HPF (0-3)
[2021-11-03 17:26] LABS: HYALINE CASTS, URINE Many /LPF (None Seen); MUCUS,URINE Many /LPF (None Seen)
[2021-11-03] MEDS: PIPERACILLIN /TAZOBACTAM 2.25 G in IV D5W 50 ML IV SCH (17:26)
--- NOTE | 2021-11-03 18:28 | NUR ---
RN NOTE PATIENT REMAINS CONFUSED NONVERBAL,AROSEABLE BY TOUCH,ON 2L OXYGEN VIA NASAL CANNULA O2:96% IV SITE IS ON LEFT AC INTACT PATENT ON IV HYDRATION NS 9OCC/HR,NPO EXCEPT MEDS INCONTINENT BOWEL/BLADDER.SAFETY MEASURE IMPLEMENT HEAD OF THE BED ELEVATED,SOFT BILATERAL WRIST RESTRAIN IN PLACE,FOR SAFETY, BED IN LOW POSITON AND LOCKED,WILL ENDORSE NEXT COMING SHIFT FOR CONTINUATION OF CARE.
--- NOTE | 2021-11-03 19:10 | NUR ---
RN NOTES RECEIVED REPORT FROM MORNING RN. PATIENT IN BED A/O [id number] EYES CONFUSED. ON NASAL CANULA AT 2 LPM TOLERATING WELL SATING 97% NO SOB NO DISTRESS NOTED AT THIS TIME. WITH IV ACCESS ON L AC # 20 PATENT FLUSHES WELL ON CONTINUOS IVF NS@ 90CC/HR. WITH BILATERAL SOFT WRIST RESTRAINT IN PLACE PATIENT IS TRYING TO GET OUT OF BED. ALL SAFETY MEASURES IN PLACE AT ALL TIMES. HOB ELEVATED. CALL LIGHT WITHIN REACH. WILL CLOSELY MONITOR THE PATIENT.
[2021-11-03] MEDS ORDERED: hydrALAZINE HCL IV 20 MG VIAL IV PRN (19:30)
--- NOTE | 2021-11-03 19:55 | NUR ---
RN NOTES RELAYED TROPONIN [address] FORBES WITH ORDER TO REPET TROPONIN LEVEL IN AM LABS. WILL CONTINUE TO MONITOR THE PATIENT FOR ANY CHANGES
[2021-11-03 20:00] VITALS: BP 151/93
[2021-11-03 21:24] LABS: ALBUMIN 3.5 g/dL (3.4-5.0); BILIRUBIN,TOTAL 0.9 mg/dL (0.2-1.0); CALCIUM, SERUM 8.3 mg/dL (8.5-10.1); CREATININE 2.5 mg/dL (0.6-1.3); POTASSIUM 4.2 mmol/L (3.5-5.1); TOTAL PROTEIN, SERUM 7.4 g/dL (6.4-8.2)
[2021-11-03 22:27] LABS: THYROID STIMULATING HORMONE 0.684 uIU/mL (0.358-3.74)
[2021-11-04] VITALS: BP 167/90
[2021-11-04] MEDS: PIPERACILLIN /TAZOBACTAM 2.25 G in IV D5W 50 ML IV SCH ×5 (00:29→23:22)
[2021-11-04 04:00] VITALS: BP 153/71
--- NOTE | 2021-11-04 04:00 | NUR ---
RN NOTES NOTED WITH 102.9 TEMP COOLING MEASURES RENDERED. TEMPERATURE WENT DOWN TO 99.4. WILL CONTINUE COOLING MEASURES
[2021-11-04] MEDS: IV NS 0.9% 1,000 ML IV PRN ×2 (04:13→16:09)
--- NOTE | 2021-11-04 06:54 | NUR ---
RN NOTES PATIENT STILL ON NASAL CANULA AT 2LPM SATING 96% NO SOB NO DISTRESS NOTED AT THIS TIME. IV ACCESS AT L AC # 20 PATENT ON CONTINUOS IVF NS @ 90CC/HR. STILL WITH BILATERAL SOFT WRIST RESTRAINTS. PATIENT STILL WITH EPISODE OF CONFUSION TRYING TO GET OUT OF BED. ALL SAFETY MEASURES IN PLACE AT ALL TIMES. HOB ELEVATED. CALL LIGHT WITHIN REACH. WILL ENDORSED TO MORNING SHIFT FOR WENDY
--- NOTE | 2021-11-04 07:30 | NUR ---
RN OPENING NOTE PATIENT IS IN BED, ASLEEP BUT EASILY AROUSABLE. ALERT AND ORIENTED X 1. BREATHING UNLABORED AND NOT IN ANY FORM OF DISTRESS. CLEAR BREATH SOUNDS UPON AUSCULTATION AND WITH OXYGEN SATURATION AT 99%. SINUS RHYTHM ON RADIOGRAPHER TECHNOLOGIST. WITH RIGHT ANTECUBITAL LINE INFUSING WITH NS AT 90 ML/HR. ALL HOSPITAL SAFETY PRECAUTIONS KEPT IN PLACE. BED IS LOCKED IN LOWEST POSITION, 3 SIDE RAILS UP, CALL ILGHT WITHIN REACH. WILL CONTINUE TO MONITOR THROUGHOUT SHIFT.
[2021-11-04] MEDS: BLOOD SUGAR DIAGNOSTIC 1 EACH STRIP IN SCH ×4 (07:58→21:47)
[2021-11-04 08:00] VITALS: BP 149/90
[2021-11-04] MEDS ORDERED: ACETAMINOPHEN 650 MG/SUPP.RECT RC PRN (09:00)
--- NOTE | 2021-11-04 09:00 | NUR ---
RN NOTE PATIENT IS FEBRILE. TYLENOL SUPPOSITORY GIVEN ORDERED. COOLING MEASURES RENDERED. WILL CONTINUE TO MONITOR.
[2021-11-04] MEDS: ASPIRIN 81 MG TAB.CHEW PO SCH (09:10)
[2021-11-04] MEDS: CARVEDILOL 12.5 MG TABLET PO SCH ×2 (09:12→21:38)
[2021-11-04 11:00] LABS: BASOPHILS % (AUTO) 0.2 % (0.0-2.0); HEMATOCRIT 39 % (39-51); HEMOGLOBIN 12.8 g/dL (13.5-17.5); LYMPHOCYTES # (AUTO) 0.7 K/uL (0.8-4.8); LYMPHOCYTES % (AUTO) 7.1 % (20.0-44.0); MEAN CORPUSCULAR HGB CONC 33 g/dl (31.0-36.0); MEAN CORPUSCULAR VOLUME 81 fL (80-96); MONOCYTES # (AUTO) 0.9 K/uL (0.1-1.30); MONOCYTES % (AUTO) 9.1 % (2.0-12.0); NEUTROPHILS # (AUTO) 8.2 K/uL (1.8-8.9); NEUTROPHILS % (AUTO) 83.6 % (43.0-81.0); PLATELET COUNT (AUTO) 148 K/uL (150-450); RED BLOOD CELL COUNT(AUTO) 4.83 MIL/uL (4.5-6.0); WHITE BLOOD COUNT (AUTO) 9.8 K/uL (4.3-11.0)
[2021-11-04] MEDS: VANCOMYCIN 0.75 GM in IV D5W 250 ML IV SCH (11:03)
[2021-11-04 12:00] VITALS: BP 104/71
[2021-11-04 12:22] LABS: CALCIUM, SERUM 7.6 mg/dL (8.5-10.1); CREATININE 1.4 mg/dL (0.6-1.3); POTASSIUM 3.5 mmol/L (3.5-5.1)
[2021-11-04 12:29] LABS: CHOLESTEROL 99 mg/dL (<200); HDL CHOLESTEROL 20 mg/dL (40-60); LDL 65 mg/dL (0-99); TRIGLYCERIDES 97 mg/dL (30-150)
[2021-11-04 16:00] VITALS: BP 122/74
--- NOTE | 2021-11-04 18:56 | NUR ---
RN CLOSING NOTE PATIENT REMAINED STABLE THROUGHOUT SHIFT. AFEBRILE AT THIS TIME. ALERT ORIENTED X 2, ABLE TO FOLLOW COMMAND. DENIES PAIN, BREATHING UNLABORED AND NOT IN ANY FORM OF DISTRESS. IV LINE REMAINS INTACT AND PATENT. ALL HOSPITAL SAFETY PRECAUTIONS KEPT IN PLACE. WILL ENDORSE TO AGRICULTURAL SCIENCE PROFESSOR NURSE.
--- NOTE | 2021-11-04 19:25 | NUR ---
RN NOTES RECEIVED PT FOR CONTINUITY OF CARE. PATIENT A/OX1-2 IN NO S/SX OF ACUTE DISTRESS AT THIS TIME; CURRENTLY ON 12L OF O2 VIA NC; WITH 02 SAT >95% AT THIS TIME. WITH IV ACCESS ON R AC#18; PATENT, INTACT AND FLUSHING WELL. WITH RUNNING NS@90MLS/HR. CURRENTLY NPO EXCEPT MEDS. WILL ENSURE SAFETY MEASURES WITHIN THE SHIFT. PATIENT BED ALARM IS ON. HEAD OF BED ELEVATED. BED IS LOCKED, IN LOWEST POSITION AND SIDE RAILS UP. CALL LIGHT WITHIN REACH OF THE PATIENT. WILL CONTINUE TO MONITOR AND REASSESS FOR ANY CHANGES AND WILL CARRY OUT ANY ONGOING AND ACTIVE MD ORDER.
[2021-11-04 20:00] VITALS: BP 166/80
[2021-11-04 21:11] LABS: BILIRUBIN,URINE NEGATIVE (NEGATIVE); COLOR,URINE YELLOW (YELLOW); LEUKOCYTE ESTERASE ,URINE NEGATIVE (NEGATIVE); NITRITE, URINE NEGATIVE (NEGATIVE); PH,URINE 5.5 (5.0-8.0); PROTEIN,URINE TRACE mg/dl (NEGATIVE); UGLUCOSE NEGATIVE (NEGATIVE); UROBILINOGEN,URINE 0.2 EU/dL (0.2)
[2021-11-04 21:29] LABS: BACTERIA,URINE Rare /HPF (None Seen); CALCIUM OXALATE CRYSTALS,UR Few /HPF (None Seen); RBC,URINE 0-2 /HPF (0-2); SQUAMOUS EPITHELIAL CELL,UR Few /HPF (None Seen); WBC,URINE 0-2 /HPF (0-3)
[2021-11-04 21:30] LABS: CREATININE, URINE 173.6 MG/DL (30.0-125.0)
[2021-11-04] MEDS: ATORVASTATIN 10 MG TABLET PO SCH (21:38)
[2021-11-05] VITALS: BP_SYST 153; BP_SYST 166; BP_DIAS 80; BP_DIAS 87
[2021-11-05 04:00] VITALS: BP 162/83
--- NOTE | 2021-11-05 04:00 | NUR ---
RN NOTES PATIENT REMAINED TO BE IN NO SIGNS OF ACUTE RESPIRATORY DISTRESS , SAFE ENVIRONMENT MAINTAINED FOR PT. AM PATIENT CARE ASSISTANCE RENDERED. WILL CONTINUE TO MONITOR AND REASSESS FOR ANY CHANGES THROUGHOUT THE SHIFT.
[2021-11-05] MEDS: PIPERACILLIN /TAZOBACTAM 2.25 G in IV D5W 50 ML IV SCH ×3 (05:09→17:25)
[2021-11-05] MEDS: IV NS 0.9% 1,000 ML IV PRN (05:09)
--- NOTE | 2021-11-05 05:45 | NUR ---
RN NOTES BEDSIDE NSG SWALLOW SCREEN DONE; PASSED. PT A/OX3-4 TOLERATED AND PASSED BEDSIDE PROCEDURE. COATING LINE WORKER MADE AWARE AND NOTIFIED HUE JACOME (JASE,FRANCIS) Addendum: 11/05/21 at 0554 by CORKY TORRES RN HUE JACOME (FRANCIS LAGUNA) ACKOWLEDGED. ORDER GIVEN TO RESUME REGULAR DIET. RN ACKNOWLEDGED AND WILL CARRY OUT. COATING LINE WORKER MADE AWARE.
--- NOTE | 2021-11-05 06:26 | NUR ---
RN CLOSING NOTE: PATIENT REMAINS IN ROOM IN NO SIGNS OF RESPIRATORY DISTRESS, PATIENT NOW A/OX3-3 ON 1L OF 02 VIA NC;TOLERATING WELL SATURATING @ >95% SP02. NOW ON REGULAR DIET; PASSED NSG BEDSIDE SWALLOW SCREEN. SAFETY MEASURES IMPLEMENTED, BED IN LOWEST POSITION, LOCKED, SIDE RAILS UP, CALL LIGHT WITHIN REACH. ALL NEEDS AND ORDERS ADDRESSED DURING THE SHIFT. IV ACCESS MAINTAINED INTACT, SECURED AND FLUSHING WELL. ALL DUE MEDS GIVEN ORDERED & SCHEDULED ; PATIENT TOLERATED WELL. PATIENT KEPT CLEAN AND COMFORTABLE WITHIN THE SHIFT. PATIENT ENDORSED TO INCOMING SHIFT RN WITH STABLE VITAL SIGN AND FOR CONTINUITY OF CARE.
[2021-11-05] MEDS: BLOOD SUGAR DIAGNOSTIC 1 EACH STRIP IN SCH ×4 (07:31→22:31)
[2021-11-05 08:00] VITALS: BP 170/95
[2021-11-05] MEDS: ASPIRIN 81 MG TAB.CHEW PO SCH (08:34)
[2021-11-05] MEDS: CARVEDILOL 12.5 MG TABLET PO SCH ×2 (08:34→21:58)
--- NOTE | 2021-11-05 08:48 | NUR ---
RN NOTE BP 180/95. COREG 12.5MG PO GIVEN. TALKED TO DAUGHTER ON THE PHONE, UPDATED ON PT'S CONDITION.
[2021-11-05] MEDS: VANCOMYCIN 0.75 GM in IV D5W 250 ML IV SCH (10:10)
[2021-11-05 11:07] LABS: BASOPHILS % (AUTO) 0.6 % (0.0-2.0); EOSINOPHILS % (AUTO) 0.2 % (0.0-6.0); HEMATOCRIT 38 % (39-51); HEMOGLOBIN 12.1 g/dL (13.5-17.5); LYMPHOCYTES # (AUTO) 0.9 K/uL (0.8-4.8); LYMPHOCYTES % (AUTO) 10.4 % (20.0-44.0); MEAN CORPUSCULAR HGB CONC 32 g/dl (31.0-36.0); MEAN CORPUSCULAR VOLUME 82 fL (80-96); MONOCYTES # (AUTO) 1.1 K/uL (0.1-1.30); MONOCYTES % (AUTO) 11.9 % (2.0-12.0); NEUTROPHILS # (AUTO) 6.9 K/uL (1.8-8.9); NEUTROPHILS % (AUTO) 76.9 % (43.0-81.0); PLATELET COUNT (AUTO) 114 K/uL (150-450); RED BLOOD CELL COUNT(AUTO) 4.64 MIL/uL (4.5-6.0)
[2021-11-05 11:16] LABS: CALCIUM, SERUM 7.6 mg/dL (8.5-10.1); CREATININE 1.2 mg/dL (0.6-1.3); POTASSIUM 3.6 mmol/L (3.5-5.1)
[2021-11-05] MEDS ORDERED: PROPOFOL 20 ML IV ONE (11:52)
[2021-11-05 12:00] VITALS: BP 105/81
[2021-11-05 16:00] VITALS: BP 158/90
--- NOTE | 2021-11-05 19:30 | NUR ---
COMMUNITY BOARD MEMBER OPENING NOTE RECEIVED PATIENT AWAKE IN BED A/OX3 IN NO S/SX OF ACUTE DISTRESS AT THIS TIME, O2 2L VIA NC WITH 02 SAT >96%. TELE MONITOR READING SB HR 54. IV ACCESS AC#18 PATENT AND INTACT RUNNING NS@90MLS/HR. WILL ENSURE SAFETY MEASURES WITHIN THE SHIFT. PATIENT BED ALARM IS ON. HEAD OF BED ELEVATED. BED IS LOCKED, IN LOWEST POSITION AND SIDE RAILS UP. CALL LIGHT WITHIN REACH OF THE PATIENT. WILL CONTINUE TO MONITOR AND REASSESS FOR CHANGES DURING SHIFT.
[2021-11-05 20:00] VITALS: BP_SYST 149; BP_SYST 154; BP_DIAS 84; BP_DIAS 87
[2021-11-05] MEDS: ATORVASTATIN 10 MG TABLET PO SCH (21:57)
--- NOTE | 2021-11-05 22:31 | NUR ---
RN NOTE BS 99.
[2021-11-06] VITALS: BP 149/84
[2021-11-06] MEDS: PIPERACILLIN /TAZOBACTAM 2.25 G in IV D5W 50 ML IV SCH ×5 (00:07→23:50)
[2021-11-06] MEDS: IV NS 0.9% 1,000 ML IV PRN ×2 (00:12→12:55)
[2021-11-06 04:00] VITALS: BP 138/72
--- NOTE | 2021-11-06 06:49 | NUR ---
ENTERPRISE ENGINEER CLOSING NOTE PATIENT ASLEEP IN BED A/OX3 IN NO S/SX OF ACUTE DISTRESS AT THIS TIME, O2 2L VIA NC WITH 02 SAT >96%. TELE MONITOR READING SB HR 54. IV ACCESS AC#18 PATENT AND INTACT RUNNING NS@90MLS/HR.ALL DUE MEDS GIVEN. PATIENT ABLE TO MAKE NEEDS KNOWN. ALL SAFETY MEASURES IN PLACE, BED LOCKED IN LOWEST POSITION WITH SIDERAILS UP X 2, CALL LIGHT WITHIN REACH. BED ALARM ON. WILL ENDORSE TO MORNING SHIFT FOR CONTINUATION OF CARE
--- NOTE | 2021-11-06 07:30 | NUR ---
OPENING NOTE RECEIVED PATIENT AWAKE IN BED A/OX3 IN NO S/SX OF ACUTE DISTRESS AT THIS TIME, O2 2L VIA NC WITH 02 SAT >97%. TELE MONITOR READING SB HR 85. IV ACCESS AC#18 PATENT AND INTACT RUNNING NS@90MLS/HR. WILL ENSURE SAFETY MEASURES WITHIN THE SHIFT. PATIENT BED ALARM IS ON. HEAD OF BED ELEVATED. BED IS LOCKED, IN LOWEST POSITION AND SIDE RAILS UP. CALL LIGHT WITHIN REACH OF THE PATIENT. WILL CONTINUE TO MONITOR AND REASSESS FOR CHANGES DURING SHIFT
[2021-11-06 07:34] LABS: CALCIUM, SERUM 7.6 mg/dL (8.5-10.1); CREATININE 1.2 mg/dL (0.6-1.3); POTASSIUM 3.6 mmol/L (3.5-5.1)
[2021-11-06 08:00] VITALS: BP 136/71
[2021-11-06] MEDS: BLOOD SUGAR DIAGNOSTIC 1 EACH STRIP IN SCH ×4 (08:03→22:14)
[2021-11-06] MEDS: ASPIRIN 81 MG TAB.CHEW PO SCH (09:09)
[2021-11-06] MEDS: CALCIUM CARB 600MG /VIT D 1 EACH TABLET PO SCH (09:09)
[2021-11-06] MEDS: CARVEDILOL 12.5 MG TABLET PO SCH ×2 (09:10→21:18)
[2021-11-06] MEDS: VANCOMYCIN 0.75 GM in IV D5W 250 ML IV SCH ×2 (10:34→11:36)
[2021-11-06 12:00] VITALS: BP 142/79
--- NOTE | 2021-11-06 12:18 | NUR ---
ALBERT received back from Omari Reynolds [phone] and he provided this patient's daughter's contact information, Ruby [phone]. ALBERT notified tech.
[2021-11-06 16:00] VITALS: BP 135/70
--- NOTE | 2021-11-06 19:00 | NUR ---
CLOSING NOTE PATIENT ASLEEP IN BED A/OX3 IN NO S/SX OF ACUTE DISTRESS AT THIS TIME, O2 2L VIA NC WITH 02 SAT >98%. TELE MONITOR READING SB HR 59. IV ACCESS AC#18 PATENT AND INTACT RUNNING NS@90MLS/HR.ALL DUE MEDS GIVEN. PATIENT ABLE TO MAKE NEEDS KNOWN. ALL SAFETY MEASURES IN PLACE, BED LOCKED IN LOWEST POSITION WITH SIDERAILS UP X 2, CALL LIGHT WITHIN REACH. BED ALARM ON. WILL ENDORSE TO WELFARE SUPERVISOR FOR CONTINUATION OF CARE
[2021-11-06 20:00] VITALS: BP 156/80
--- NOTE | 2021-11-06 20:00 | NUR ---
INTERACTIVE MARKETING STRATEGIST NOTE PT IN BED AWAKE. A/O X 2. NO SOB NO DISTRESS OR DISCOMFORT NOTED. DENIES PAIN. PT ON 2L O2 VIA N/C O2 SAT WNL. NOTED PT ACCIDENTLY PULLED OUT IV LINE. NO BLEEDING NOTED. CHARGE NURSE CHANNING INSERT NEW LINE #22 G IN LT HAND RESUMED IVF NS AT 90 ML/HR, NO S/S OF INFILTRATION NOTED. KEPT HIM DRY AND CLEAN. ALL NEEDS ATTENDED. SIDE RAILS UP X 2 AND CALL LIGHT WITHIN REACH. VSS. BED ALARM ON. CONTINUE TO MONITOR HIM. Addendum: 11/06/21 at 2040 by CLOVIS OGLESBY RN PT ON TELE SB HR 57
[2021-11-06] MEDS: ATORVASTATIN 10 MG TABLET PO SCH (21:18)
[2021-11-06] MEDS: VANCOMYCIN 1 GM in IV D5W 250ml IV SCH (22:16)
[2021-11-07] VITALS: BP 115/43
[2021-11-07 04:00] VITALS: BP 117/74
[2021-11-07] MEDS: IV NS 0.9% 1,000 ML IV PRN (04:26)
[2021-11-07] MEDS: PIPERACILLIN /TAZOBACTAM 2.25 G in IV D5W 50 ML IV SCH ×3 (05:44→18:15)
--- NOTE | 2021-11-07 06:49 | NUR ---
TECHNICAL MGR NOTE PT IN BED ASLEEP, AROUSABLE. NO DISTRESS OR DISCOMFORT DURING THE SHIFT. NO S/S OF PAIN NOTED. SB HR 58. IVF NS INFUSING AT 90 ML/HR, NO S/S OF INFILTRATION NOTED. KEPT HIM DRY AND CLEAN. ALL NEEDS ATTENDED. WILL ENDORSE TO DAY SHIFT NURSE FOR CONTINUE TO CARE.
[2021-11-07 06:50] LABS: CALCIUM, SERUM 8.1 mg/dL (8.5-10.1); CREATININE 1.1 mg/dL (0.6-1.3); POTASSIUM 3.5 mmol/L (3.5-5.1)
--- NOTE | 2021-11-07 07:30 | NUR ---
RN OPENING NOTE PATIENT IS ASLEEP BUT EASILY AROUSABLE, ALERT AND ORIENTED X 4. WITH OXYGEN VIA NASAL CANNULA AT 1L/MIN. SINUS BRADYCARDIA ON LIMOUSINE AND HEARSE UPHOLSTERER.DENIES PAIN, BREATHING UNLABORED AND NOT IN ANY FORM OF DISTRESS. LEFT HAND IV LINE INTACT AND INFUSING WITH NS AT 90 ML/HR, NO INFILTRATION OR PHLEBITIS NOTED ON IV SITE. ALL HOSPITAL SAFETY PRECAUTIONS IN PLACE. BED IS LOCKED IN LOWEST POSITION, 3 SIDE RAILS UP, CALL LIGHT WITHIN REACH. WILL CONTINUE TO MONITOR THROUGHOUT SHIFT.
[2021-11-07 08:00] VITALS: BP 173/96
--- NOTE | 2021-11-07 08:00 | NUR ---
RN NOTE BLOOD SUGAR 96 MG/DL. NO INSULIN GIVEN.
[2021-11-07] MEDS: BLOOD SUGAR DIAGNOSTIC 1 EACH STRIP IN SCH ×4 (08:14→21:21)
[2021-11-07] MEDS: CARVEDILOL 12.5 MG TABLET PO SCH ×2 (09:00→21:13)
--- NOTE | 2021-11-07 09:00 | NUR ---
RN NOTE BLOOD PRESSURE 173/96. HYDRALAZINE GIVEN IV. WILL CONTINUE TO MONITOR BP.
[2021-11-07] MEDS: CALCIUM CARB 600MG /VIT D 1 EACH TABLET PO SCH (09:22)
[2021-11-07] MEDS: VANCOMYCIN 1 GM in IV D5W 250ml IV SCH ×2 (11:33→23:38)
[2021-11-07 12:02] VITALS: BP 146/65
[2021-11-07 16:00] VITALS: BP 132/82
--- NOTE | 2021-11-07 16:57 | NUR ---
RN NOTE PER RADIOLOGY DEPARTMENT, CT ANGIOGRAM WILL BE DONE TOMORROW MORNING THERE IS NO SCHEDULE AVAILABLE TO ACCOMMODATE PATIENT TODAY.
--- NOTE | 2021-11-07 18:41 | NUR ---
RN NOTE LEFT HAND IV OUT. IV REINSERTED ON RIGHT ANTECUBITAL, INTACT AND PATENT, NO INFILTRATION NOTED.
--- NOTE | 2021-11-07 18:44 | NUR ---
RN CLOSING NOTE PATIENT REMAINED STABLE THROUGHOUT SHIFT. TOLERATES O2 VIA NASAL CANNULA SATTING AT 97%ALERT, ORIENTED X 4, DENIES PAIN, BREATHING UNLABORED AND NOT IN ANY FORM OF DISTRESS. IV LINE NOW IN RIGHT ANTECUBITAL, INFUSING WITH NS AT 90 CC/HR. ALL HOSPITAL SAFETY PRECAUTIONS KEPT IN PLACE. WILL ENDORSE TO LITHOPLATE MAKER NURSE.
[2021-11-07 20:00] VITALS: BP 124/71
[2021-11-07] MEDS: ATORVASTATIN 10 MG TABLET PO SCH (21:13)
--- NOTE | 2021-11-07 23:37 | NUR ---
RN NOTE IV ACCESS ON RAC 20G PULLED OUT. NEW IV ACCESS ESTABLISHED ON RFA 20G, INTACT AND PATENT, FLUSHES EASILY WITH NO RESISTANCE.
[2021-11-08] VITALS: BP 146/69
[2021-11-08] MEDS: PIPERACILLIN /TAZOBACTAM 2.25 G in IV D5W 50 ML IV SCH ×3 (00:54→12:29)
[2021-11-08 04:00] VITALS: BP 149/79
[2021-11-08 06:50] LABS: BASOPHILS % (AUTO) 0.5 % (0.0-2.0); HEMATOCRIT 35 % (39-51); HEMOGLOBIN 11.4 g/dL (13.5-17.5); LYMPHOCYTES # (AUTO) 0.8 K/uL (0.8-4.8); LYMPHOCYTES % (AUTO) 12.2 % (20.0-44.0); MEAN CORPUSCULAR HGB CONC 33 g/dl (31.0-36.0); MEAN CORPUSCULAR VOLUME 82 fL (80-96); MONOCYTES # (AUTO) 0.7 K/uL (0.1-1.30); MONOCYTES % (AUTO) 10.3 % (2.0-12.0); NEUTROPHILS # (AUTO) 4.9 K/uL (1.8-8.9); PLATELET COUNT (AUTO) 155 K/uL (150-450); RED BLOOD CELL COUNT(AUTO) 4.27 MIL/uL (4.5-6.0); WHITE BLOOD COUNT (AUTO) 6.5 K/uL (4.3-11.0)
[2021-11-08 07:20] LABS: CALCIUM, SERUM 8.1 mg/dL (8.5-10.1); CREATININE 1.1 mg/dL (0.6-1.3); MAGNESIUM 1.9 mg/dL (1.8-2.4); PHOSPHORUS 2.9 mg/dL (2.5-4.9); POTASSIUM 3.3 mmol/L (3.5-5.1)
--- NOTE | 2021-11-08 07:30 | NUR ---
RN OPENING NOTE PATIENT IS ASLEEP BUT EASILY AROUSABLE, ALERT AND ORIENTED X 4. WITH OXYGEN VIA NASAL CANNULA AT 1L/MIN. 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 RIGHT HAND IV LINE INTACT AND INFUSING WITH NS AT 90 ML/HR, NO INFILTRATION OR PHLEBITIS NOTED ON IV SITE. ALL HOSPITAL SAFETY PRECAUTIONS IN PLACE. BED IS LOCKED IN LOWEST POSITION, 3 SIDE RAILS UP, CALL LIGHT WITHIN REACH. WILL CONTINUE TO MONITOR THROUGHOUT SHIFT.
--- NOTE | 2021-11-08 07:31 | NUR ---
SOCIAL WORK CASE MANAGER CLOSING NOTE PT REMAINS IN BED, ASLEEP BUT EASILY AROUSABLE, A&O X3, IRRITABLE AT TIMES. PT ON 1L NC WITH O2SAT RANGING IN THE HIGH 90S-100%; NO S/S OF RESP DISTRESS, NO SOB OR COUGH, NON-LABORED AND EQUAL BREATHING. PT ATTACHED TO EXTERNAL MONITOR, SR THROUGHOUT THE WHOLE NIGHT. IV ACCESS ON RFA 20G INTACT AND PATENT, FLUSHES EASILY WITH NO RESISTANCE, NS RUNNING AT 90 ML/HR. ALL DUE MEDS ADMINISTERED DURING THE NIGHT. BED IN LOWEST POSITION, CALL LIGHT WITHIN REACH, SIDE RAILS UP X2. WILL ENDORSE TO DAYSHIFT NURSE TO CONTINUE CARE.
[2021-11-08 08:00] VITALS: BP 125/90
[2021-11-08] MEDS: BLOOD SUGAR DIAGNOSTIC 1 EACH STRIP IN SCH ×2 (08:16→11:20)
[2021-11-08] MEDS: CARVEDILOL 12.5 MG TABLET PO SCH (09:00)
[2021-11-08] MEDS: CALCIUM CARB 600MG /VIT D 1 EACH TABLET PO SCH (09:08)
[2021-11-08] MEDS ORDERED: ATOR10TA PO (10:03)
[2021-11-08] MEDS ORDERED: CARV12.52 PO (10:03)
[2021-11-08] MEDS ORDERED: ASPI-1420 PO (10:05)
[2021-11-08] MEDS ORDERED: IOHEXOL-350 100 ML VIAL IV ONE (10:06)
[2021-11-08] MEDS ORDERED: CT SWABBABLE VALVE TRANS SET 1 EA INFUS.SET MC ONE (10:07)
[2021-11-08] MEDS ORDERED: NITROGLYCERIN 0.4 MG/TAB BOTTLE ONE (10:07)
[2021-11-08] MEDS ORDERED: IV NS 0.9% 250 ML IV ONE (10:07)
--- NOTE | 2021-11-08 10:07 | NUR ---
RN NOTE GAUGE 18 IV ON LEFT ANTECUBITAL INSERTED BY JOAO GARCIA. PATIENT LEFT UNIT TO RADIOLOGY DEPARTMENT FOR CT ANGIOGRAM OF THE HEART. NOT IN ANY FORM OF DISTRESS.
[2021-11-08] MEDS ORDERED: IV NS 0.9% 500 ML IV SCH (10:11)
[2021-11-08] MEDS ORDERED: METOPROLOL TARTRATE INJ 5 MG/5 ML AMPUL IVP PRN (10:30)
[2021-11-08] MEDS ORDERED: NITROGLYCERIN 0.4 MG/TAB BOTTLE SL ONE (10:30)
--- NOTE | 2021-11-08 10:31 | NUR ---
pt consented to CTA heart; VSS; metoprolol no tgiven as HR below 60; verbalized " fuck it, get me out of here", VSS; report given to Floor RN; sent back to floor via wheelchair
[2021-11-08] MEDS ORDERED: POTASSIUM CHLORIDE 20 MEQ TAB.PRT.SR PO SCH (11:00)
--- NOTE | 2021-11-08 11:04 | NUR ---
SS Consult requested for homelessness. The pt. is a 66 -year-old male patient who presented to ED due to Acute CVA versus TIA, NSTEMI per EMR. Upon SS consult, the pt. is Alert & Oriented x 4 and makes good eye contact. The pt. appears unkempt with depressed mood & affect. Pt. denies SI/HI and denies hallucinations. SW explored pt.s living situation. Patient denies being homeless and endorses having lived with a friend, Omari, for years. Per EMR, pt lives in a custodial. Patient was unable to provide address. Client denies receipt of EBT, SSI, SSDI, no stated income. SW explored pt.s mental health Hx. and pt. denies any mental illness or taking medication. Pt denies SI/ HI, hallucinations, delusions. Pt denies any past treatment for substance use or mental health. SW explored pt.s drug & ETOH use. Pt. denies any drug use or alcohol use. Per EMR, client endorsed use of cocaine and/ or methamphetamine. Toxicology report shows methamphetamine in system upon presentation to ED. Pt. states he is ambulatory and independent with all his ADLs. SW explored pt.s support system. Pt. states he has a friend Omari who is his emergency contact and will be able to provide transport from hospital when ready for discharge. Pt wishes to discharge to Omari's home. Plan: ALBERT will follow up and provide pt. with homeless resources to long-term, food duarte, showers etc. pending pt. interest in these resources prior to discharge. Pt currently does not identify as homeless. ALBERT to obtain signature on homeless waiver pending pt. willingness. Addendum: 11/08/21 at 1445 by IMANI PRICE This SW followed up and discussed with patient that his friend, Omari stated he pt. is unable to return to live with him. Pt. expressed understanding. SW provided pt. with TAP card bus directions to [facility] [[address] [facility] [address]] and pt. was agreeable. SW also provided pt. with the following homeless resources and pt. accepted them: Year-round shelters: [place] [facility] [address] [place], [place] [phone] ; [facility] [address] [place] [address]; [place] [facility] [address] [facility] [address] Hygiene: [facility]: [address] [place] ; [facility] [address] [facility] ; [facility] [address] [place] . Food Resources: [place] [employer] [facility] at [facility]- [address] [facility]; Meet Each Need with Dignity ([facility]) [address] [facility] [place]; [facility] [address] [facility]; [facility] [address] [facility]. Mental Health resources provided: [facility] [address] [place] [address] ; [facility] [address] [facility] [address], [place] [address] ; [facility] [address] [place] [address] ; [facility] [address] [place], [place] [id number] Healthcare Clinics: [facility] [address] [place]. [place] ; [facility] [address] [facility] [address] [place] [address]; [facility] [place] [address] [facility] [place] [phone]) [phone] Counseling--Outpatient [facility]erg[facility] [address] [facility] [facility] [facility], [address] [place], [place] [address] (Specializes in in-depth psychotherapy for emotional distress: anxiety, depression, interpersonal conflicts, life transitions, childhood abuse) [facility] [address] [place] [address] (Assist with solving problem marital difficulties, separation & divorce, aging parents, & grief, chronic & terminal illness) [facility] [address] [place] [address] (Deal with loss & grief, anxiety, marital difficulties) Homebound/Mental Health Services [address] [facility] [address] [place] [address] (Provide in-home mental services to people who are incapable of leaving their homes) [facility]eds of the Elder[facility] Senior Service/[facility] Center [address] [place] [address] [facility] [address] [facility] [place] [address] PSYCHIATRIC OUTPATIENT SERVICES [facility] Partial Hospitalization and Intensive Outpatient Program (Managed Care and [place] Only)[address] [facility] [phone] [facility] Partial Hospitalization and Outpatient [id number] [facility] [address] [place], [place] [phone] [facility] [id number] [facility] [address] [place], [place] [phone] [facility] Partial Hospitalization and Outpatient [id number] [place], [phone] Substance Abuse resources provided included: [facility] Substance Abuse Self-Helpline (SAS ; CRI -HELP [address] [facility]. [place]. [place] [address] ; [facility] [address] [facility] [address] ; [facility] [address] [place] [address] ; [facility] [address] [facility] [phone] ; [facility] Treatment [facility] [address] [facility] [address] ; [facility] [address] [phone] ; [facility] Substance Abuse Helpline(SAS)[facility] ; [facility] ; [facility]; [facility] [place]; [facility] [place]; [facility] Rashid Shafer; [facility] [place]; [facility] [place]; [facility] [place]; [facility] [place]; Alcoholics Anonymous -SFV; Kt-Qldz-Lbsioib ; Marijuana Anonymous -[facility]V; Narcotics Anonymous [email or web address];
--- NOTE | 2021-11-08 11:36 | NUR ---
RN NOTE BLOOD SUGAR 97 MG/DL. NO INSULIN GIVEN.
[2021-11-08 12:00] VITALS: BP 133/69
--- NOTE | 2021-11-08 12:44 | NUR ---
relayed cta result ok for discharge.
[2021-11-08] MEDS: VANCOMYCIN 1 GM in IV D5W 250ml IV SCH (13:03)
--- NOTE | 2021-11-08 15:30 | NUR ---
RN NOTE PATIENT IS DISCHARGED TO PATIENT'S [id number], ACCOMPANIED BY EPIDEMIOLOGY INTERN TO THE [facility]. PATIENT IS AMBULATORY, BREATHING UNLABORED AND NOT IN ANY FORM OF DISTRESS. ALL FORMS SIGNED BY PATIENT. DISCHARGE PACKET GIVEN TO PATIENT. IV DISCONTINUED AND SITE IS COVERED WITH DRY DRESSING. DISCHARGE V/S: 98 HR 55 RR 16 O2 SAT 95% BP 130/71.
== END 2021-11-08 16:04 | disposition home or self-care (01) | DRG 720 ==
LOC: ER 09:44 → TELE1 13:32
PROVIDERS: ADMIT Nurse Practitioner Acute Care
DX: A41.9 Sepsis, unspecified organism (principal); N17.0 Acute kidney failure with tubular necrosis; I21.A1 Myocardial infarction type 2; G92.8 Other toxic encephalopathy; E87.1 Hypo-osmolality and hyponatremia; E87.2 Acidosis; E88.09 Other disorders of plasma-protein metabolism, not elsewhere classified; F15.10 Other stimulant abuse, uncomplicated; F17.210 Nicotine dependence, cigarettes, uncomplicated; Z82.49 Family history of ischemic heart disease and other diseases of the circulatory system; Z83.3 Family history of diabetes mellitus; Z71.6 Tobacco abuse counseling; G45.9 Transient cerebral ischemic attack, unspecified; Z20.822 Contact with and (suspected) exposure to COVID-19; I10 Essential (primary) hypertension; R47.01 Aphasia; R29.706 NIHSS score 6
CPT/HCPCS: 36415; 70450-TC; 70496-TC; 70498-TC; 70551-TC; 71045-TC; 75574; 76770-TC; 80048-TC; 80053-TC; 80061-TC; 80076-TC; 80202-TC; 81001; 82140-TC; 82570-TC; 82962-TC; 83605-TC; 83735-TC; 84100-TC; 84300-TC; 84443-TC; 84484-TC; 85025-TC; 85652-TC; 85730-TC; 86850-TC; 87040-TC; 87081-TC; 87086-TC; 92526; 92611-TC; 93307-TC; 94799-TC; 97110-TC; 97116-TC; 97530-TC; 97535-TC; C9803; G0378; J0360; J0692; J2543; J2704; J3370; J7030; J7040; J7050; J7060; Q9967

== ENCOUNTER 2023-10-26 21:26 | Emergency (ER) | payer SELFPAY ==
[~2023-10-26] VITALS: Ht 165.1 cm; Wt 77.1 kg
[~2023-10-26 21:26] MED LIST changes: +ASPI-1420 PO; +ATOR10TA PO; +CARV12.52 PO; -CLIN300C12 PO; -FERR325T23 PO; -HYDR-4384 PO; -IBUP-1957 PO; -PANT40TA2 PO; -SUCR1ORA6 PO
[2023-10-26] MEDS ORDERED: CEFTRIAXONE 1GM BAG (ER ONLY) 50 ML IV ONE (22:50)
[2023-10-26] MEDS: CEFTRIAXONE 1 G in IV D5W 50 ML IV ONE (22:55)
[2023-10-26 22:56] LABS: BASOPHILS % (AUTO) 0.4 % (0.0-2.0); EOSINOPHILS # (AUTO) 0.1 K/uL (0.0-0.7); EOSINOPHILS % (AUTO) 0.7 % (0.0-6.0); HEMATOCRIT 38 % (39-51); HEMOGLOBIN 12.1 g/dL (13.5-17.5); LYMPHOCYTES # (AUTO) 0.9 K/uL (0.8-4.8); LYMPHOCYTES % (AUTO) 10.6 % (20.0-44.0); MEAN CORPUSCULAR HEMOGLOBIN 26 PG (26.0-33.0); MEAN CORPUSCULAR HGB CONC 32 g/dl (31.0-36.0); MEAN CORPUSCULAR VOLUME 81 fL (80-96); MONOCYTES # (AUTO) 0.9 K/uL (0.1-1.30); NEUTROPHILS # (AUTO) 6.6 K/uL (1.8-8.9); NEUTROPHILS % (AUTO) 77.3 % (43.0-81.0); PLATELET COUNT (AUTO) 324 K/uL (150-450); RED BLOOD CELL COUNT(AUTO) 4.69 MIL/uL (4.5-6.0); RED CELL DISTRIBUTION WIDTH 15.3 % (11.5-15.0); WHITE BLOOD COUNT (AUTO) 8.5 K/uL (4.3-11.0)
[2023-10-26 23:13] LABS: CALCIUM, SERUM 9.5 mg/dL (8.5-10.1); CREATININE 1.3 mg/dL (0.6-1.3); LACTIC ACID 1.3 mmol/L (0.4-2.0); POTASSIUM 4.2 mmol/L (3.5-5.1)
[2023-10-26 23:20] LABS: ALBUMIN 2.7 g/dL (3.4-5.0); BILIRUBIN,TOTAL 0.8 mg/dL (0.2-1.0); TOTAL PROTEIN, SERUM 7.6 g/dL (6.4-8.2)
[2023-10-26] MEDS ORDERED: CLIN150C16 PO (23:33)
[2023-10-26] MEDS ORDERED: CEPH500C2 PO (23:33)
[2023-10-27 00:23] VITALS: BP 166/80; TEMP 98.1; O2SAT 98
== END 2023-10-27 00:25 | disposition home or self-care (01) ==
LOC: ER 21:30
DX: S80.212A Abrasion, left knee, initial encounter (principal); L03.116 Cellulitis of left lower limb; M10.9 Gout, unspecified; F17.200 Nicotine dependence, unspecified, uncomplicated; Z88.8 Allergy status to other drugs, medicaments and biological substances; Z87.39 Personal history of other diseases of the musculoskeletal system and connective tissue; X58.XXXA Exposure to other specified factors, initial encounter; Y93.89 Activity, other specified; Y92.89 Other specified places as the place of occurrence of the external cause; Y99.8 Other external cause status
CPT/HCPCS: 99285; 96365; 93971; 73564; 85025; 87040; 83605; 36415; 80053; J0696 ×2; J7060

== ENCOUNTER 2023-10-30 22:49 | Emergency (ER) | payer SELFPAY ==
[~2023-10-30 22:49] MED LIST changes: +CEPH500C2 PO; +CLIN150C16 PO
== END 2023-10-30 23:49 | disposition left against medical advice (07) ==
LOC: ER 22:50
DX: M79.606 Pain in leg, unspecified (principal); Z53.21 Procedure and treatment not carried out due to patient leaving prior to being seen by health care provider

== ENCOUNTER 2024-11-30 15:25 | Inpatient (IN) | payer MEDICAID ==
[~2024-11-30] VITALS: Ht 162.6 cm; Wt 66.2 kg
[2024-11-30] MEDS: IV NS 0.9% 1,000 ML BAG IV ONE (15:45)
[2024-11-30 15:57] LABS: PLATELET COUNT (AUTO) 306 K/uL (150-450); RED BLOOD CELL COUNT(AUTO) 5.64 MIL/uL (4.5-6.0); RED CELL DISTRIBUTION WIDTH 15.0 % (11.5-15.0); WHITE BLOOD COUNT (AUTO) 7.1 K/uL (4.3-11.0)
[2024-11-30 16:03] LABS: CALCIUM, SERUM 8.7 mg/dL (8.5-10.1); CREATININE 1.4 mg/dL (0.6-1.3); SODIUM SERUM 136 mmol/L (136-145); UREA NITROGEN, BLOOD 29 mg/dL (7-18)
[2024-11-30 16:06] LABS: INR 1.02 (0.91-1.10)
[2024-11-30 16:09] LABS: ASPARTATE AMINOTRANSFERASE 14 U/L (15-37); TOTAL PROTEIN, SERUM 7.9 g/dL (6.4-8.2)
[2024-11-30 16:16] LABS: SERUM AMMONIA 4 umol/L (11-32)
[2024-11-30 16:48] LABS: APPEARANCE,URINE CLEAR (CLEAR); BLOOD, URINE Negative Ery/uL (NEGATIVE); LEUKOCYTE ESTERASE ,URINE Negative (NEGATIVE); UGLUCOSE Negative (NEGATIVE)
[2024-11-30 16:55] LABS: NITRITE, URINE NEGATIVE (NEGATIVE)
[2024-11-30 16:56] LABS: ADD URINE CULTURE NO; AMPHETAMINE, URINE NEGATIVE (NEGATIVE); BARBITURATE, URINE NEGATIVE (NEGATIVE); BENZODIAZEPINE, URINE NEGATIVE (NEGATIVE); CANNABINOID, URINE NEGATIVE (NEGATIVE); COCCAINE, URINE NEGATIVE (NEGATIVE); OPIATE, URINE NEGATIVE (NEGATIVE); SQUAMOUS EPITHELIAL CELL,UR None Seen /HPF (None Seen)
[2024-11-30] MEDS ORDERED: ASPIRIN EC 325 MG TABLET.DR PO ONE (17:32)
[2024-11-30] MEDS: ASPIRIN EC 325 MG TABLET.DR PO ONE (17:40)
[2024-11-30 18:08] LABS: ALCOHOL, BLOOD < 3 mg/dL (0-10)
[2024-11-30] MEDS ORDERED: MAGNESIUM HYDROXIDE 30 ML UDC PO PRN (20:30)
[2024-11-30] MEDS ORDERED: Z GUARD REMEDY 4 OZ OINT TP PRN (20:30)
[2024-11-30] MEDS ORDERED: MAG HYDROX/AL HYDROX/SIMETH 30 ML UDC PO PRN (20:30)
[2024-11-30] MEDS ORDERED: ONDANSETRON HCL/PF 4 MG/2 ML VIAL IVP PRN (20:30)
[2024-11-30] MEDS ORDERED: ACETAMINOPHEN 325 MG TABLET PO PRN (20:30)
[2024-11-30 21:50] VITALS: BP 171/80; TEMP 98.1; O2SAT 99
[2024-11-30] MEDS: ATORVASTATIN 40 MG TABLET PO SCH (23:19)
[2024-11-30] MEDS: ENOXAPARIN SODIUM 40 MG/0.4 ML DISP.SYRIN SQ SCH (23:21)
[2024-11-30] MEDS: IV NS 0.9% 1,000 ML IV PRN (23:22)
[2024-12-01] VITALS (7 sets, daily range): BP systolic 141–176; BP diastolic 60–89; TEMP 97.1–98.4; O2SAT 97–100
[2024-12-01 07:25] LABS: PLATELET COUNT (AUTO) 263 K/uL (150-450); RED BLOOD CELL COUNT(AUTO) 5.19 MIL/uL (4.5-6.0); RED CELL DISTRIBUTION WIDTH 15.0 % (11.5-15.0); WHITE BLOOD COUNT (AUTO) 6.2 K/uL (4.3-11.0)
[2024-12-01 07:39] LABS: CALCIUM, SERUM 8.8 mg/dL (8.5-10.1); CREATININE 1.3 mg/dL (0.6-1.3); PHOSPHORUS 3.1 mg/dL (2.5-4.9); SODIUM SERUM 139.0 mmol/L (136-145); UREA NITROGEN, BLOOD 30.0 mg/dL (7-18)
[2024-12-01 07:48] LABS: LDL 80.0 mg/dL (0-99)
[2024-12-01] MEDS: PANTOPRAZOLE 40 MG TABLET.DR PO SCH (08:23)
[2024-12-01] MEDS: ASPIRIN EC 81 MG TABLET.DR PO SCH (08:26)
[2024-12-01] MEDS: AMLODIPINE BESYLATE 10 MG TABLET PO SCH (09:27)
[2024-12-01] MEDS ORDERED: IV NS 0.9% 250 ML IV ONE (13:13)
[2024-12-01] MEDS ORDERED: CT SWABBABLE VALVE TRANS SET 1 EA INFUS.SET MC ONE (13:13)
[2024-12-01] MEDS ORDERED: IOHEXOL-350 100 ML VIAL IV ONE (13:13)
[2024-12-02] VITALS: BP_SYST 120; BP_SYST 125; BP_DIAS 69; TEMP 98.1; O2SAT 100
[2024-12-02 04:00] VITALS: BP 160/97; TEMP 98.1; O2SAT 100
[2024-12-02 07:41] LABS: PLATELET COUNT (AUTO) 251 K/uL (150-450); RED BLOOD CELL COUNT(AUTO) 5.50 MIL/uL (4.5-6.0); RED CELL DISTRIBUTION WIDTH 15.8 % (11.5-15.0); WHITE BLOOD COUNT (AUTO) 6.5 K/uL (4.3-11.0)
[2024-12-02 08:38] LABS: CALCIUM, SERUM 9.0 mg/dL (8.5-10.1); CREATININE 1.2 mg/dL (0.6-1.3); SODIUM SERUM 137.0 mmol/L (136-145); UREA NITROGEN, BLOOD 23.0 mg/dL (7-18)
[2024-12-02 08:43] LABS: PHOSPHORUS 3.2 mg/dL (2.5-4.9)
[2024-12-02 08:46] VITALS: BP 162/85
[2024-12-02] MEDS ORDERED: ASPI-1169 PO (11:38)
[2024-12-02] MEDS ORDERED: AMLO-213 PO (11:38)
[2024-12-02] MEDS ORDERED: ATOR40TA PO (11:38)
[2024-12-02] MEDS ORDERED: CLOP75TA15 PO (11:38)
[2024-12-02] MEDS ORDERED: LISI10TA29 PO (11:38)
[2024-12-02] MEDS: CLOPIDOGREL BISULFATE 75 MG TABLET PO SCH (12:25)
[2024-12-03] MEDS ORDERED: LISINOPRIL (10MG) 10 MG TABLET PO SCH (09:00)
== END 2024-12-02 15:04 | disposition home or self-care (01) | DRG 45 ==
LOC: ER 15:31 → TELE 21:26
PROVIDERS: ADMIT Registered Nurse Psychiatric/Mental Health; ATTEND Nurse Practitioner Family
DX: I63.9 Cerebral infarction, unspecified (principal); E86.0 Dehydration; N17.9 Acute kidney failure, unspecified; E83.89 Other disorders of mineral metabolism; R73.9 Hyperglycemia, unspecified; I10 Essential (primary) hypertension; I25.10 Atherosclerotic heart disease of native coronary artery without angina pectoris; R29.810 Facial weakness; Z82.49 Family history of ischemic heart disease and other diseases of the circulatory system; Z87.891 Personal history of nicotine dependence; Z96.642 Presence of left artificial hip joint; I69.328 Other speech and language deficits following cerebral infarction; R29.701 NIHSS score 1; S50.312A Abrasion of left elbow, initial encounter; X58.XXXA Exposure to other specified factors, initial encounter; Y93.9 Activity, unspecified; Y92.009 Unspecified place in unspecified non-institutional (private) residence as the place of occurrence of the external cause
CPT/HCPCS: 36415; 70450-TC; 70496-TC; 70498-TC; 71045-TC; 80048-TC; 80061-TC; 80076-TC; 81001; 82140-TC; 82962-TC; 83735-TC; 84100-TC; 84443-TC; 84484-TC; 85025-TC; 85730-TC; 92507-TC; 92521; 93307-TC; 97112-TC; 97116-TC; 97530-TC; 97535-TC; A4223; G0378; G0480; J1650; J7030; J7050; Q9967